=== PATIENT | female | born 1965 | race Caucasian/White ===

== ENCOUNTER 2019-11-21 02:48 | Emergency (ER) | payer MEDICAID ==
[~2019-11-21] VITALS: Ht 161.3 cm; Wt 63.6 kg
[2019-11-21 03:37] LABS: BASOPHILS # (AUTO) 0.03 x10^3/uL (0-0.1); BASOPHILS % (AUTO) 0 % (0-1); EOSINOPHILS # (AUTO) 0.43 x10^3/uL (0-0.4); EOSINOPHILS % (AUTO) 5 % (1-7); LYMPHOCYTES # (AUTO) 1.92 x10^3/uL (1-3.4); LYMPHOCYTES % (AUTO) 23 % (22-44); MD NO; MEAN CORPUSCULAR HEMOGLOBIN 33.4 pg (27.0-34.8); MEAN CORPUSCULAR HGB CONC 33.9 g/dL (32.4-35.8); MEAN CORPUSCULAR VOLUME 98.5 fL (80-100); MEAN PLATELET VOLUME 7.7 fL (7.4-10.4); MONOCYTES # (AUTO) 0.34 x10^3/uL (0.2-0.8); MONOCYTES % (AUTO) 4 % (2-9); NEUTROPHILS # (AUTO) 5.66 x10^3/uL (1.8-6.8); NEUTROPHILS % (AUTO) 68 % (42-75); PLATELET COUNT 277 x10^3/uL (130-400); RED BLOOD COUNT 4.27 x10^6/uL (3.82-5.3); RED CELL DISTRIBUTION WIDTH 13.1 % (9.6-15.2)
[2019-11-21 03:48] LABS: ALANINE AMINOTRANSFERASE 22 U/L (12-78); ALBUMIN 3.4 g/dL (3.4-5.0); ANION GAP 5 mmol/L (5-15); CALCIUM 7.9 mg/dL (8.5-10.1); CHLORIDE 107 mmol/L (98-107); CREATININE 0.94 mg/dL (0.55-1.02)
[2019-11-21 03:52] LABS: ALKALINE PHOSPHATASE 85 U/L (45-117); BILIRUBIN,TOTAL 0.2 mg/dL (0.2-1.0); TROPONIN I < 0.015 ng/mL (0.000-0.045)
--- NOTE | 2019-11-21 04:22 | NUR ---
Patient states "still feel like shit", denies nausea and pain. New mask given. Patient up for recheck
--- NOTE | 2019-11-21 04:54 | NUR ---
Per patient request daughter (Josiah [phone]) was phoned to pick patient up. Daughter stated that her friend is own the way to the hospital to get her as we speak.
[2019-11-21 04:56] VITALS: BP 103/64
== END 2019-11-21 05:18 | disposition home or self-care (01) ==
LOC: ED 04:30
DX: K29.20 Alcoholic gastritis without bleeding (principal); R55 Syncope and collapse; R94.31 Abnormal electrocardiogram [ECG] [EKG]; Z90.89 Acquired absence of other organs
CPT/HCPCS: 36415; 80053; 80307; 84484; 85025; 93005; 99284

== ENCOUNTER 2020-05-08 19:10 | Emergency (ER) | payer MEDICAID, OTHER ==
[~2020-05-08] VITALS: Ht 160 cm; Wt 65.7 kg
[2020-05-08 19:15] VITALS: BP 119/76
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
[2020-05-08] MEDS ORDERED: SILVER SULF. CRM 1% , 25GM ONE (19:56)
[2020-05-08] MEDS ORDERED: DIPH,PERTUSS(ACELL),TET VAC/PF 0.5 ML IM-VACC ONE ×2 (19:56→20:00)
[2020-05-08] MEDS ORDERED: SILVER SULF. CRM 1% , 25GM TP ONE (20:00)
== END 2020-05-08 20:30 | disposition home or self-care (01) ==
LOC: ED 20:15
DX: T22.212A Burn of second degree of left forearm, initial encounter (principal); G89.11 Acute pain due to trauma; M79.632 Pain in left forearm; T31.0 Burns involving less than 10% of body surface; F17.200 Nicotine dependence, unspecified, uncomplicated; Z90.89 Acquired absence of other organs
CPT/HCPCS: 16020; 90471; 90715; 99283